=== PATIENT | male | born 1945 | race Caucasian/White ===

== ENCOUNTER 2019-07-19 09:24 | Emergency (ER) | payer OTHER, MEDICAID ==
[~2019-07-19] VITALS: Ht 172.7 cm; Wt 77.1 kg
[2019-07-19 09:31] VITALS: BP 91/43
[2019-07-19 10:23] VITALS: BP 91/43
== END 2019-07-19 10:23 ==
LOC: MED 09:24
DX: Z46.59 Encounter for fitting and adjustment of other gastrointestinal appliance and device (principal); I51.9 Heart disease, unspecified; I10 Essential (primary) hypertension; Z98.890 Other specified postprocedural states
CPT/HCPCS: 43762; 99284

== ENCOUNTER 2019-12-18 12:40 | Emergency (ER) | payer OTHER, MEDICAID, SELFPAY ==
[~2019-12-18] VITALS: Ht 172.7 cm; Wt 63.0 kg
[2019-12-18 12:47] VITALS: BP 132/56
--- NOTE | 2019-12-18 12:50 | NUR ---
PATEL MIGUEL ALS TO ER BED 06. RN EVALUATING AT BEDSIDE.
--- NOTE | 2019-12-18 12:52 | NUR ---
74 Y/O MALE FROM [facility] FOR ONSET OF N/V/D SINCE THIS MORNING. PER EMS PT HAD 2 EPISODES OF VOMITING AND 2 EPISODES OF DIARRHEA THIS MORNING. ABD SOFT, ROUND, NONTENDER TO PALP, BOWEL SOUNDS PRESENT X 4 QUAD. RR EVEN AND UNLABORED. PT PLACED ON BAND SPLICER, PULSE OX, AND BP CUFF. MEDHX: ID, SEIZURES, HTN, CARDIOMEGALY, HYPOTHYROIDISM, GERD ALLERGIES: NKA
[2019-12-18 13:48] LABS: BASOPHILS # (AUTO) 0.1 K/uL (0.00-0.22); BASOPHILS % (AUTO) 0.9 % (0.0-2.0); EOSINOPHILS # (AUTO) 0.3 K/uL (0-0.4); EOSINOPHILS % (AUTO) 4.1 % (0.0-4.0); LYMPHOCYTES % (AUTO) 30.8 % (20.5-51.1); MEAN CORPUSCULAR HEMOGLOBIN 30 pg (27-31); MEAN CORPUSCULAR HGB CONC 32 g/dL (33-37); MEAN CORPUSCULAR VOLUME 91.8 fL (80-94); MONOCYTES # (AUTO) 0.7 K/uL (0.8-1.0); NEUTROPHILS # (AUTO) 3.4 K/uL (1.8-7.7); NEUTROPHILS % (AUTO) 53.2 % (42.2-75.2); PLATELET COUNT (AUTO) 251 K/uL (140-450); RED BLOOD CELL COUNT(AUTO) 4.36 MIL/uL (4.20-6.10); RED CELL DISTRIBUTION WIDTH 13.8 % (11.6-13.7); WHITE BLOOD COUNT (AUTO) 6.4 K/uL (4.8-10.8)
[2019-12-18 14:20] LABS: ANION GAP 10.9 (8-16); ASPARTATE AMINOTRANSFERASE 14 U/L (15-37); CARBON DIOXIDE 31.9 mmol/L (21-32); CHLORIDE 104 mmol/L (98-107); CREATININE 0.9 mg/dL (0.6-1.3); GLUCOSE 89 mg/dL (74-106); POTASSIUM 3.8 mmol/L (3.5-5.1); SODIUM SERUM 143 mmol/L (136-145); TOTAL BILIRUBIN 0.3 mg/dL (0.0-1.0); UREA NITROGEN, BLOOD 22 mg/dL (7-18)
--- NOTE | 2019-12-18 14:33 | NUR ---
done straight cath fo ua in and out. dr hill informed and aware.
[2019-12-18 14:46] LABS: APPEARANCE,URINE CLEAR (CLEAR); BILIRUBIN,URINE NEGATIVE (NEGATIVE); BLOOD, URINE TRACE-I (NEGATIVE); COLOR,URINE YELLOW (YELLOW); LEUKOCYTE ESTERASE ,URINE NEGATIVE (NEGATIVE); NITRITE, URINE NEGATIVE (NEGATIVE); UGLUCOSE NEGATIVE (NEGATIVE)
--- NOTE | 2019-12-18 15:27 | NUR ---
pt comfortable in bed with sitter at bedside from [facility]
--- NOTE | 2019-12-18 15:31 | NUR ---
dr hill at bedside reevaluating pt.
--- NOTE | 2019-12-18 15:50 | NUR ---
covid swab done .
[2019-12-18 16:31] VITALS: BP 127/61
--- NOTE | 2019-12-18 16:34 | NUR ---
Patient discharged with v/s stable. Written and verbal after care instructions given and explained. Patient verbalized understanding. Wheel Chair Assisted with to [facility]. All questions addressed prior to discharge. Advised to follow up with PMD.
--- NOTE | 2019-12-21 05:56 | NUR ---
LAB BRING THE PT SARS-COV2 NASOPHARYNGEAL WITH INDETERMINE RESULT. CPOY OF THE RESULT GIVEN TO STEPHANIE [place].
== END 2019-12-18 16:34 | disposition home or self-care (01) ==
LOC: MED 12:40 → EEVIPCON 12:40 → MED 16:34
DX: R11.2 Nausea with vomiting, unspecified (principal); R19.7 Diarrhea, unspecified; E03.9 Hypothyroidism, unspecified; K21.9 Gastro-esophageal reflux disease without esophagitis
CPT/HCPCS: 36415; 80053; 81003; 85025; 99283; U0003

== ENCOUNTER 2020-06-04 19:55 | Emergency (ER) | payer OTHER, MEDICAID ==
[~2020-06-04] VITALS: Ht 172.7 cm; Wt 68.0 kg
[2020-06-04 20:11] VITALS: BP 130/68
--- NOTE | 2020-06-04 20:16 | NUR ---
triaged and waiting in lobby.
[2020-06-04 21:57] VITALS: BP 130/68
--- NOTE | 2020-06-04 21:57 | NUR ---
PATIENT LEFT WITHOUT BEING SEEN BY DR. ALLEN. NO FURTHER CARE PROVIDED FOR PATIENT.
== END 2020-06-04 21:57 | disposition left against medical advice (07) ==
LOC: MED 19:55
DX: K91.840 Postprocedural hemorrhage of a digestive system organ or structure following a digestive system procedure (principal); Z53.21 Procedure and treatment not carried out due to patient leaving prior to being seen by health care provider; Y83.9 Surgical procedure, unspecified as the cause of abnormal reaction of the patient, or of later complication, without mention of misadventure at the time of the procedure

== ENCOUNTER 2020-06-05 08:42 | Emergency (ER) | payer OTHER, MEDICAID ==
[~2020-06-05] VITALS: Ht 175.3 cm; Wt 70.8 kg
[2020-06-05 08:53] VITALS: BP 105/71
--- NOTE | 2020-06-05 09:03 | NUR ---
Patient transferred to bed 7 via personal wheelchair accompanied by caregiver. RN evaluating patient at bedside.
[2020-06-05 10:18] LABS: BASOPHILS % (AUTO) 0.4 % (0.0-2.0); EOSINOPHILS # (AUTO) 0.5 K/uL (0-0.4); EOSINOPHILS % (AUTO) 5.2 % (0.0-4.0); HEMATOCRIT 42.2 % (36-52); HEMOGLOBIN 14.2 g/dL (12.0-18.0); LYMPHOCYTES # (AUTO) 1.7 K/uL (2.0-11.5); MEAN CORPUSCULAR HEMOGLOBIN 31 pg (27-31); MEAN CORPUSCULAR HGB CONC 34 g/dL (33-37); MEAN CORPUSCULAR VOLUME 92.1 fL (80-94); MONOCYTES % (AUTO) 10.3 % (1.7-9.3); NEUTROPHILS # (AUTO) 6.2 K/uL (1.8-7.7); NEUTROPHILS % (AUTO) 66.1 % (42.2-75.2); PLATELET COUNT (AUTO) 258 K/uL (140-450); RED BLOOD CELL COUNT(AUTO) 4.58 MIL/uL (4.20-6.10); WHITE BLOOD COUNT (AUTO) 9.4 K/uL (4.8-10.8)
[2020-06-05 10:37] LABS: ALBUMIN 3.1 g/dL (3.4-5.0); AMYLASE 67 U/L (25-115); ANION GAP 13.1 (8-16); ASPARTATE AMINOTRANSFERASE 19 U/L (15-37); CARBON DIOXIDE 29.3 mmol/L (21-32); CHLORIDE 101 mmol/L (98-107); CREATININE 0.8 mg/dL (0.6-1.3); GLUCOSE 106 mg/dL (74-106); LIPASE 87 U/L (73-393); POTASSIUM 4.4 mmol/L (3.5-5.1); SODIUM SERUM 139 mmol/L (136-145); TOTAL BILIRUBIN 0.3 mg/dL (0.0-1.0); UREA NITROGEN, BLOOD 34 mg/dL (7-18)
--- NOTE | 2020-06-05 10:38 | NUR ---
Patient taken to CT scan via gurney by [employer].
--- NOTE | 2020-06-05 11:31 | NUR ---
Stable CT reviewed by Has been discharged Ambulated to exit
== END 2020-06-05 11:16 | disposition home or self-care (01) ==
LOC: MED 08:42
DX: K59.00 Constipation, unspecified (principal); K21.9 Gastro-esophageal reflux disease without esophagitis; I10 Essential (primary) hypertension; E07.9 Disorder of thyroid, unspecified; I51.9 Heart disease, unspecified; E11.9 Type 2 diabetes mellitus without complications; Z46.59 Encounter for fitting and adjustment of other gastrointestinal appliance and device
CPT/HCPCS: 36415; 80053; 82150; 83690; 85025; 99284